=== PATIENT | female | born 1950 | race Caucasian/White ===

== ENCOUNTER 2017-02-05 13:00 | Day surgery (SDC) | payer OTHER ==
[2017-02-05 14:35] VITALS: BP 140/82; PULSE 68; RESP 20; TEMP 96.4; O2SAT 97
[2017-02-05] MEDS ORDERED: LIDOCAINE HCL 1% 20 ML VIAL ONE (14:35)
[2017-02-05 15:00] VITALS: BP 137/80; PULSE 68; RESP 20; O2SAT 98
--- NOTE | 2017-02-05 15:30 | RADRPT ---
EXAM DATE/TIME: 02/05/2017 13:50 [place] COMPARISON: No previous studies available for comparison. [facility], Jan 05 2017. INDICATIONS : Enlarged right thyroid nodule. MEDICAL HISTORY : Diabetes mellitus type 2. Hypertension. Hyperlipidemia. Enlarged right thyroid nodule. SURGICAL HISTORY : Tonsillectomy. Adenoidectomy. D&C. ENCOUNTER: Initial ACUITY: 1 month PAIN SCORE: 0/10 LOCATION: Right neck ORGAN: Right thyroid lobe SPECIMENS: Three fine needle aspirate(s) submitted for pathologic evaluation. DEVICE: 22 gauge needle Post procedure scanning reveals no hematoma or other complication. The possibility does exist that the tissue obtained will be non-diagnostic. If the sample is non-gregorio gnostic a repeat biopsy or surgical biopsy may need to be performed. TECHNIQUE: 1. Ultrasound guidance for needle biopsy. 2. Needle biopsy. The risks, benefits and alternatives to the procedure were explained and verbal and written consent w as obtained. The site was prepped in sterile fashion. Full sterile technique was used, including ca p, mask, sterile gloves and gown and a large sterile sheet. Hand hygiene and 2% chlorhexidine and/or betadine/alcohol prep was utilized per protocol for cutaneous antisepsis. The skin and subcutaneous tissues were infiltrated with local anesthetic solution. Sterile gel and sterile probe cover were u tilized for ultrasound guidance. With the patient on the ultrasound table, images were obtained. A needle was advanced into the identified target and the number of specimens as above obtained and clinton bmitted for pathologic evaluation. Preliminary pathological evaluation shows adequate material. The patient tolerated the procedure well and left the ultrasound suite in stable condition. CONCLUSION: Uncomplicated ultrasound guided fine needle aspiration of a dominant right thyroid nodule. Salvatore Portillo Jr., MD on February 05, 2017 at 15:26 Board Certified Radiologist. This report was verified electronically.
== END 2017-02-05 15:05 | disposition home or self-care (01) ==
LOC: HRAD 13:00 → HRIP 13:07 → HRAD 15:05
PROVIDERS: ATTEND Family Medicine
DX: E04.1 Nontoxic single thyroid nodule (principal); E78.5 Hyperlipidemia, unspecified; I10 Essential (primary) hypertension; E11.9 Type 2 diabetes mellitus without complications
CPT/HCPCS: 10022; 76942; 88172; 88173